=== PATIENT | female | born 1985 | race African-American/Black ===

== ENCOUNTER 2016-10-25 20:28 | Emergency (ER) | payer BC ==
[~2016-10-25] VITALS: Ht 167.6 cm; Wt 56.7 kg
[~2016-10-25 20:28] MED LIST: AMOXICILLIN500 MG ORAL; NKM
[2016-10-25 21:24] VITALS: BP 119/64
[2016-10-25 21:38] LABS: APPEARANCE,URINE CLEAR; KETONES,URINE NEGATIVE (NEGATIVE); LEUKOCYTE ESTERASE ,URINE NEGATIVE (NEGATIVE); NITRITE,URINE NEGATIVE (NEGATIVE); PH,URINE 6.5 (4.5-8.0); PROTEIN,URINE NEGATIVE (NEGATIVE); UROBILINOGEN,URINE NORMAL MG/DL (0.0-1.0)
[2016-10-25 21:46] LABS: BACTERIA,URINE FEW /HPF; RBC,URINE 0-2 /HPF (0 - 2); SQUAMOUS EPITHELIAL CELL,UR FEW /LPF (NONE/OCC); WBC,URINE 0-2 /HPF (0 - 2)
[2016-10-25] MEDS ORDERED: TAMIFLU75 MG ORAL (21:54)
[2016-10-25] MEDS ORDERED: NAPROXEN375 M2 ORAL (21:54)
[2016-10-25] MEDS ORDERED: ZITHROMAX250 MG ORAL (21:54)
[2016-10-25] MEDS ORDERED: Oseltamivir 75mg cap ORAL SCH (22:00)
[2016-10-25 23:08] VITALS: BP 120/68
--- NOTE | 2016-10-26 10:39 | Diagnostic Imaging Report ---
Indication: SOB Technique: One view of the chest Comparison: none Findings: Lungs and pleural spaces are clear. Heart size is normal. Impression: No acute process
--- NOTE | 2016-10-26 13:05 | Emergency Room Report ---
History of Present Illness General Chief Complaint: Upper Respiratory Illness Source: Patient Present Illness HPI Patient presented for fever, increased cough and body aches. The patient gradual onset of symptoms over the past 2 days. Patient had not been vomiting. She had complaints of some subjective chills. She had a nonproductive cough which had intermittent exacerbations. She had not been taking any medications. She denied any past medical history. Allergies: Coded Allergies: No Known Allergies (Unverified , 07/22/16) Patient History Past Medical History: see triage record Last Menstrual Period: Sep Reviewed Nursing Documentation: PMH: Agreed, PSxH: Agreed Nursing Documentation-PMH Hx Gastrointestinal Problems: Yes - ACID REFLUX Review of Systems All Other Systems: negative except mentioned in HPI Physical Exam Vital Signs Date Time Temp Pulse Resp B/P Pulse Ox O2 Delivery O2 Flow Rate FiO2 10/25/16 20:48 103.1 92 18 119/64 100 Room Air General Appearance: well appearing, no apparent distress, alert, GCS 15 Head: normocephalic, atraumatic ENT: hearing grossly normal, normal voice Neck: full range of motion, supple Respiratory: lungs clear, normal breath sounds, no rhonchi, no respiratory distress, speaking full sentences Cardiovascular #1: normal peripheral pulses, regular rate, rhythm, no edema Gastrointestinal: non tender, soft, no mass Musculoskeletal: normal inspection, back normal, digits/nails normal, gait/ station normal, no calf tenderness Neurologic: normal inspection, alert, oriented x3, responsive, tenant selector III-XII nml as tested, normal gait Psychiatric: mood/affect normal Skin: no rash Medical Decision Making Diagnostic Impression: Primary Impression: Viral respiratory infection ER Course Patient presented for cough.Differential diagnosis included but was not limited to bronchitis, pneumonia, pulmonary embolism, pericarditis, asthma, foreign body. The patient appears to have a viral illness consistent with influenza. The patient presented some evidence of secondary infection. The patient was started on Tamiflu as well as azithromycin. The patient was given ibuprofen in emergency department.The patient is advised to follow up with primary care doctor in 1-2 days. Patient is advised to return if any worsening condition or if any changes in status that are concerning. Labs Test 10/25/16 21:04 Urine Color Pale yellow Urine Appearance Clear Urine pH 6.5 (4.5-8.0) Urine Specific [place] 1.010 (1.005-1.035) Urine Protein Negative (NEGATIVE) Urine Glucose (UA) Negative (NEGATIVE) Urine Ketones Negative (NEGATIVE) Urine Occult Blood 4+ (NEGATIVE) Urine Nitrite Negative (NEGATIVE) Urine Bilirubin Negative (NEGATIVE) Urine Urobilinogen Normal MG/DL (0.0-1.0) Urine Leukocyte Esterase Negative (NEGATIVE) Urine RBC 0-2 /HPF (0 - 2) Urine WBC 0-2 /HPF (0 - 2) Urine Squamous Epithelial Cells Few /LPF (NONE/OCC) Urine Bacteria Few /HPF (NONE) Urine HCG, Qualitative Negative Last Vital Signs Date Time Temp Pulse Resp B/P Pulse Ox O2 Delivery O2 Flow Rate FiO2 10/25/16 23:08 103.1 89 16 120/68 100 Room Air Status: improved Disposition: HOME, SELF-CARE Condition: Stable Scripts Naproxen* (NAPROXEN*) 375 Mg Tablet.dr 375 MG ORAL TWICE A DAY, #30 TAB Prov: Flako Deleon 10/25/16 Azithromycin* (ZITHROMAX*) 250 Mg Tablet 250 MG ORAL DAILY, #6 TAB 0 Refills Take two tables once daily for 1 day, then one tablet once daily for 4 days. Prov: Flako Deleon 10/25/16 Oseltamivir Phosphate (Tamiflu) 75 Mg Capsule 75 MG ORAL TWICE A DAY, #10 CAP Prov: Flako Deleno 10/25/16 Departure Forms: Return to Work Return to Work in (Days): 5 Patient Instructions: Viral Respiratory Infection Flako Deleon Oct 26, 2016 13:05
== END 2016-10-25 23:12 | disposition home or self-care (01) ==
LOC: EMR 21:05
DX: J06.9 Acute upper respiratory infection, unspecified (principal); B97.89 Other viral agents as the cause of diseases classified elsewhere; K21.9 Gastro-esophageal reflux disease without esophagitis
CPT/HCPCS: 71010; 81003; 81025; 86710; 99283